=== PATIENT | male | born 1940 | race African-American/Black ===

== ENCOUNTER 2017-05-30 06:59 | Inpatient (IN) ==
[2017-05-30 07:35] LABS: Basophils % 0.2 % (0.0-0.8); Hemoglobin 8.5 GM/DL (14.0-18.0); Immature Granulocytes % 0.4 %; Immature Granulocytes Absolute 0.02 #; Lymphocytes # 0.7 10*3/uL (1.4-4.0); Lymphocytes % 13.5 % (21.2-54.2); Mean Corpuscular HGB Conc 28.3 GM/DL (32-36); Mean Corpuscular Hemoglobin 29 PG (27-34); Mean Corpuscular Volume 103.8 FL (87-102); Mean Platelet Volume 11.4 FL (9.6-12.0); Monocytes # 0.4 10*3/uL (0.11-0.8); Monocytes % 7.4 % (1.7-12.7); Neutrophils % 78.5 % (38.7-73.9); Platelet Count 160 T/CUMM (130-400); Red Blood Count 2.89 MC/CUMM (3.8-5.5); Red Cell Distribution Width 15.5 % (9.3-17.3); White Blood Count 5.1 T/CUMM (4-12)
[2017-05-30 07:57] LABS: Apearance,Urine Slightly Hazy (Clear); Bacteria,Urine Many /HPF (Few); Bilirubin,Urine Negative (Negative); Blood, Urine Small mg/dL (Negative); Glucose,Urine (UA) Negative (Negative); Ketones,Urine Negative (Negative); Mucus,Urine Occasional /LPF (Occasional); Nitrite,Urine Positive (Negative); Protein,Urine Negative; RBC,Urine 1 /HPF (0-4); Squamous Epithelial Cell,Urine Occasional /HPF (0-10); Urine Color Yellow (Yellow); Urine Specific Gravity 1.012 (1.001-1.035); Urine Urobilinogen < 2.0 EU/DL (0.2-1.0); WBC,Urine 43 /HPF (0-6)
[2017-05-30 08:01] LABS: Albumin 2.9 G/DL (3.4-5.0); Bilirubin,Total 0.4 MG/DL (0.2-1.0); Calcium 9.7 MG/DL (8.5-10.1); Osmolality,Calculated 295.8 MOS/KG (273-304); Potassium 4.6 MMOL/L (3.5-5.1); Total Protein 6.3 G/DL (6.4-8.3)
[2017-05-30 08:10] LABS: Elliptocytes 1+; Hypochromasia 2+; Microcytosis 1+; Target Cells Slight
[2017-05-30] MEDS ORDERED: cefTRIAXone 1,000 MG in SODIUM CHLORIDE 0.9% 100 ML IV STA (08:50)
[2017-05-30] MEDS ORDERED: SODIUM CHLORIDE 0.9% 500 ML IV STA (08:50)
[2017-05-30] MEDS ORDERED: cefTRIAXone 1,000 MG VIAL ONE (08:54)
[2017-05-30] MEDS ORDERED: ONDANSETRON 4 MG/2 ML VIAL IV PRN (10:14)
[2017-05-30] MEDS ORDERED: ACETAMINOPHEN 325 MG TABLET PO PRN (10:14)
[2017-05-30] MEDS ORDERED: BUDESONIDE 0.5 MG/2 ML NEB RESP TX PRN (10:17)
[2017-05-30] MEDS: ALBUTEROL/IPRATROPIUM 3 ML NEB RESP TX SCH ×2 (13:00→19:17)
[2017-05-30] MEDS: SODIUM CHLORIDE 0.9% 1,000 ML IV SCH ×2 (14:28→22:31)
[2017-05-30] MEDS: DICLOFENAC POTASSIUM 50 MG TABLET PO SCH ×2 (15:48→21:01)
[2017-05-30] MEDS: VALSARTAN PO SCH (21:01)
[2017-05-30] MEDS: SACUBITRIL PO SCH (21:01)
[2017-05-30] MEDS: ATORVASTATIN 40 MG TABLET PO SCH (21:01)
[2017-05-31] MEDS: ALBUTEROL/IPRATROPIUM 3 ML NEB RESP TX SCH ×4 (00:44→20:08)
[2017-05-31] MEDS: SODIUM CHLORIDE 0.9% 1,000 ML IV SCH ×3 (06:36→22:53)
[2017-05-31] MEDS ORDERED: IPRATROPIUM 500 MCG/2.5 ML NEB RESP TX SCH (07:00)
[2017-05-31 07:05] LABS: Basophils % 0.2 % (0.0-0.8); Eosinophils % 0.2 % (0.00-10.9); Hematocrit 25.1 VOL% (42.0-52.0); Hemoglobin 7.2 GM/DL (14.0-18.0); Immature Granulocytes % 0.5 %; Immature Granulocytes Absolute 0.02 #; Lymphocytes # 0.6 10*3/uL (1.4-4.0); Lymphocytes % 13.9 % (21.2-54.2); Mean Corpuscular HGB Conc 28.7 GM/DL (32-36); Mean Corpuscular Hemoglobin 29 PG (27-34); Mean Platelet Volume 11.3 FL (9.6-12.0); Monocytes # 0.4 10*3/uL (0.11-0.8); Neutrophils # 3.1 10*3/uL (1.4-7.4); Neutrophils % 75.2 % (38.7-73.9); Platelet Count 140 T/CUMM (130-400); Red Blood Count 2.46 MC/CUMM (3.8-5.5); Red Cell Distribution Width 15.7 % (9.3-17.3); White Blood Count 4.1 T/CUMM (4-12)
[2017-05-31 07:28] LABS: Anisocytosis 1+; Basophilic Stippling Slight; Poikilocytosis 1+
[2017-05-31 07:39] LABS: Albumin 2.7 G/DL (3.4-5.0); Bilirubin,Total 0.6 MG/DL (0.2-1.0); Calcium 8.9 MG/DL (8.5-10.1); Osmolality,Calculated 293.4 MOS/KG (273-304); Potassium 4.1 MMOL/L (3.5-5.1); Total Protein 5.1 G/DL (6.4-8.3)
[2017-05-31 08:18] LABS: % Iron Saturation 29.6 % (18-50); Ferritin 84.8 ng/ml (26-388)
[2017-05-31 10:04] LABS: Folate 9.2 NG/ML (5.4-24.0)
[2017-05-31] MEDS: predniSONE 10 MG TABLET PO SCH (10:36)
[2017-05-31] MEDS: PANTOPRAZOLE 40 MG TABLET PO SCH (10:36)
[2017-05-31] MEDS: DIGOXIN 0.125 MG TABLET PO SCH (10:37)
[2017-05-31] MEDS: FUROSEMIDE 80 MG TABLET PO SCH (10:38)
[2017-05-31] MEDS: CARVEDILOL 3.125 MG TABLET PO SCH (10:38)
[2017-05-31] MEDS: DICLOFENAC POTASSIUM 50 MG TABLET PO SCH ×3 (10:45→20:46)
[2017-05-31] MEDS: VALSARTAN PO SCH ×2 (10:46→20:46)
[2017-05-31] MEDS: SACUBITRIL PO SCH ×2 (10:46→20:46)
[2017-05-31] MEDS: POTASSIUM CHLORIDE 20 MEQ TABLET PO SCH (10:47)
[2017-05-31] MEDS ORDERED: SKIN HEALING OINT (AQUAPHOR) 50 GM TUBE TOP PRN (14:59)
[2017-05-31] MEDS: ATORVASTATIN 40 MG TABLET PO SCH (20:46)
[2017-06-01] MEDS: ALBUTEROL/IPRATROPIUM 3 ML NEB RESP TX SCH ×4 (00:53→19:13)
[2017-06-01 06:48] LABS: Basophils % 0.2 % (0.0-0.8); Eosinophils % 0.7 % (0.00-10.9); Hematocrit 23.1 VOL% (42.0-52.0); Hemoglobin 6.8 GM/DL (14.0-18.0); Immature Granulocytes % 0.2 %; Immature Granulocytes Absolute 0.01 #; Lymphocytes # 0.9 10*3/uL (1.4-4.0); Lymphocytes % 20.5 % (21.2-54.2); Mean Corpuscular HGB Conc 29.4 GM/DL (32-36); Mean Corpuscular Hemoglobin 29 PG (27-34); Mean Corpuscular Volume 99.1 FL (87-102); Mean Platelet Volume 11.4 FL (9.6-12.0); Monocytes # 0.5 10*3/uL (0.11-0.8); Monocytes % 12.3 % (1.7-12.7); Neutrophils # 2.8 10*3/uL (1.4-7.4); Neutrophils % 66.1 % (38.7-73.9); Platelet Count 143 T/CUMM (130-400); Red Blood Count 2.33 MC/CUMM (3.8-5.5); Red Cell Distribution Width 15.7 % (9.3-17.3); White Blood Count 4.2 T/CUMM (4-12)
[2017-06-01] MEDS: SODIUM CHLORIDE 0.9% 1,000 ML IV SCH ×3 (07:04→20:06)
[2017-06-01 07:16] LABS: Calcium 7.9 MG/DL (8.5-10.1); Magnesium 1.9 MG/DL (1.8-2.4); Potassium 3.9 MMOL/L (3.5-5.1)
[2017-06-01] MEDS ORDERED: DOCUSATE SODIUM 100 MG CAPSULE PO PRN (07:41)
[2017-06-01] MEDS: DICLOFENAC POTASSIUM 50 MG TABLET PO SCH ×2 (09:57→15:16)
[2017-06-01] MEDS: CARVEDILOL 3.125 MG TABLET PO SCH (09:58)
[2017-06-01] MEDS: FERROUS SULFATE 325 MG TABLET PO SCH ×2 (09:58→20:04)
[2017-06-01] MEDS: DIGOXIN 0.125 MG TABLET PO SCH (09:59)
[2017-06-01] MEDS: POTASSIUM CHLORIDE 20 MEQ TABLET PO SCH (09:59)
[2017-06-01] MEDS: PANTOPRAZOLE 40 MG TABLET PO SCH (10:01)
[2017-06-01] MEDS: predniSONE 10 MG TABLET PO SCH (10:01)
[2017-06-01] MEDS: FUROSEMIDE 80 MG TABLET PO SCH (10:01)
[2017-06-01] MEDS: SACUBITRIL PO SCH ×2 (10:23→20:05)
[2017-06-01] MEDS: VALSARTAN PO SCH ×2 (10:23→20:05)
[2017-06-01] MEDS: FUROSEMIDE 20 MG/2 ML VIAL IV SCH (15:10)
[2017-06-01 16:43] LABS: Hematocrit 26.5 VOL% (42.0-52.0); Hemoglobin 7.9 GM/DL (14.0-18.0)
[2017-06-01] MEDS: ATORVASTATIN 40 MG TABLET PO SCH (20:04)
[2017-06-02] MEDS: ALBUTEROL/IPRATROPIUM 3 ML NEB RESP TX SCH ×3 (00:11→12:42)
[2017-06-02 07:21] LABS: Basophils % 0.2 % (0.0-0.8); Eosinophils % 0.7 % (0.00-10.9); Hematocrit 23.6 VOL% (42.0-52.0); Immature Granulocytes % 0.2 %; Immature Granulocytes Absolute 0.01 #; Lymphocytes # 0.8 10*3/uL (1.4-4.0); Lymphocytes % 14.4 % (21.2-54.2); Mean Corpuscular HGB Conc 29.7 GM/DL (32-36); Mean Corpuscular Hemoglobin 29 PG (27-34); Mean Corpuscular Volume 97.1 FL (87-102); Mean Platelet Volume 10.9 FL (9.6-12.0); Monocytes # 0.7 10*3/uL (0.11-0.8); Monocytes % 12.4 % (1.7-12.7); Neutrophils # 3.9 10*3/uL (1.4-7.4); Neutrophils % 72.1 % (38.7-73.9); Platelet Count 128 T/CUMM (130-400); Red Blood Count 2.43 MC/CUMM (3.8-5.5); Red Cell Distribution Width 15.2 % (9.3-17.3); White Blood Count 5.5 T/CUMM (4-12)
[2017-06-02 08:22] LABS: Alanine Aminotransferase 18 U/L (16-61); Albumin 2.3 G/DL (3.4-5.0); Alkaline Phosphatase 63 U/L (45-117); Aspartate Amino Transferase 18 U/L (0-37); Bilirubin,Total < 0.39 MG/DL (0.2-1.0); Blood Urea Nitrogen 11 MG/DL (7-18); Calcium 8.1 MG/DL (8.5-10.1); Glucose 92 MG/DL (74-106); Osmolality,Calculated 279.3 MOS/KG (273-304); Phosphorous 1.9 MG/DL (2.5-4.9); Sodium 141 MMOL/L (136-145); Total Protein 4.5 G/DL (6.4-8.3)
[2017-06-02] MEDS: FUROSEMIDE 20 MG/2 ML VIAL IV SCH (08:59)
[2017-06-02] MEDS ORDERED: POLYETHYLENE GLYCOL POWDER 17 GM PACK PO SCH (09:00)
[2017-06-02] MEDS ORDERED: PANTOPRAZOLE 40 MG TABLET PO SCH (09:00)
[2017-06-02] MEDS: POTASSIUM CHLORIDE 20 MEQ TABLET PO SCH (09:03)
[2017-06-02] MEDS: predniSONE 10 MG TABLET PO SCH (09:03)
[2017-06-02] MEDS: FERROUS SULFATE 325 MG TABLET PO SCH (09:04)
[2017-06-02] MEDS: DIGOXIN 0.125 MG TABLET PO SCH (09:04)
[2017-06-02] MEDS: CARVEDILOL 3.125 MG TABLET PO SCH (09:04)
[2017-06-02] MEDS: SACUBITRIL PO SCH (09:14)
[2017-06-02] MEDS: VALSARTAN PO SCH (09:14)
[2017-06-02 11:17] VITALS: BP 120/55
[2017-06-02] MEDS: SODIUM CHLORIDE 0.9% 1,000 ML IV SCH (11:21)
== END 2017-06-02 16:15 | disposition home health service (06) | DRG 689 ==
LOC: EDBD → EDUNIT# → N.ED 06:59 → N.EDINP 10:08 → SUATTDRO 10:08 → N.EDINP 11:12 → N.4E 11:29
PROVIDERS: ATTEND Internal Medicine

== ENCOUNTER 2017-06-29 13:49 | Inpatient (IN) ==
[2017-06-29] MEDS ORDERED: SODIUM CHLORIDE 0.9% 1,300 ML IV ONE (14:02)
[2017-06-29] MEDS ORDERED: MORPHINE 2 MG/1 ML SYRINGE IV STA (14:07)
[2017-06-29] MEDS ORDERED: ONDANSETRON 4 MG/2 ML VIAL IV STA (14:07)
[2017-06-29] MEDS ORDERED: ONDANSETRON 4 MG/2 ML VIAL ONE (14:08)
[2017-06-29] MEDS ORDERED: MORPHINE 2 MG/1 ML SYRINGE ONE (14:08)
[2017-06-29 15:23] LABS: Alanine Aminotransferase 16 U/L (16-61); Albumin 2.3 G/DL (3.4-5.0); Alkaline Phosphatase 48 U/L (45-117); Aspartate Amino Transferase 13 U/L (0-37); Bilirubin,Total < 0.39 MG/DL (0.2-1.0); Blood Urea Nitrogen 34 MG/DL (7-18); Calcium 7.8 MG/DL (8.5-10.1); Glucose 109 MG/DL (74-106); Osmolality,Calculated 289.3 MOS/KG (273-304); Potassium 4.9 MMOL/L (3.5-5.1); Sodium 141 MMOL/L (136-145); Total Protein 4.4 G/DL (6.4-8.3)
[2017-06-29 15:25] LABS: Immature Granulocytes % 0.7 %; Immature Granulocytes Absolute 0.05 #; Lymphocytes # 0.3 10*3/uL (1.4-4.0); Lymphocytes % 3.9 % (21.2-54.2); Mean Corpuscular HGB Conc 29.3 GM/DL (32-36); Mean Corpuscular Hemoglobin 29 PG (27-34); Mean Platelet Volume 10.9 FL (9.6-12.0); Monocytes # 0.3 10*3/uL (0.11-0.8); Monocytes % 4.9 % (1.7-12.7); NRBC # 0.05 10*3/uL; Neutrophils # 6.3 10*3/uL (1.4-7.4); Neutrophils % 90.5 % (38.7-73.9); Platelet Count 192 T/CUMM (130-400); Red Cell Distribution Width 16.2 % (9.3-17.3); White Blood Count 6.9 T/CUMM (4-12)
[2017-06-29 15:30] LABS: INR 1.1; PT Patient Result 11.4 SECS; Partial Thromboplastin Time 26.8 SECS (0-40)
[2017-06-29 15:47] LABS: Hemoglobin 4.1 GM/DL (14.0-18.0)
[2017-06-29 15:50] LABS: Lactic Acid 3.2 MMOL/L (0.4-2.0)
[2017-06-29] MEDS ORDERED: SODIUM CHLORIDE 0.9% 1,000 ML IV PRN (15:50)
[2017-06-29 16:52] LABS: Band Neutrophils 1 % (0-10); Lymphocytes 8 % (20-55); Platelet Estimate Normal; Segmented Neutrophils 90 % (50-85); Total Cells Counted 100
[2017-06-29] MEDS ORDERED: ACETAMINOPHEN 325 MG TABLET PO PRN (16:55)
[2017-06-29] MEDS ORDERED: ONDANSETRON 4 MG/2 ML VIAL IV PRN (16:55)
[2017-06-29] MEDS ORDERED: DOCUSATE SODIUM 100 MG CAPSULE PO PRN (16:55)
[2017-06-29] MEDS ORDERED: traMADol 50 MG TABLET PO PRN (17:03)
[2017-06-29] MEDS ORDERED: BUDESONIDE 0.5 MG/2 ML NEB RESP TX PRN (17:03)
[2017-06-29] MEDS: SODIUM CHLORIDE 0.9% 1,000 ML IV SCH (17:14)
[2017-06-29 17:25] LABS: Folate 13.4 NG/ML (5.4-24.0); Vitamin B12 359 PG/ML (211-911)
[2017-06-29] MEDS ORDERED: SODIUM CHLORIDE 0.9% 500 ML IV STA (17:44)
[2017-06-29] MEDS: ALBUTEROL/IPRATROPIUM 3 ML NEB RESP TX SCH ×2 (19:21→22:42)
[2017-06-29 19:37] LABS: Immature Granulocytes % 0.6 %; Immature Granulocytes Absolute 0.05 #; Lymphocytes # 0.4 10*3/uL (1.4-4.0); Lymphocytes % 4.1 % (21.2-54.2); Mean Corpuscular HGB Conc 27.7 GM/DL (32-36); Mean Corpuscular Hemoglobin 29 PG (27-34); Mean Corpuscular Volume 102.8 FL (87-102); Mean Platelet Volume 11.1 FL (9.6-12.0); Monocytes # 0.6 10*3/uL (0.11-0.8); Monocytes % 6.5 % (1.7-12.7); NRBC # 0.02 10*3/uL; Neutrophils # 7.9 10*3/uL (1.4-7.4); Neutrophils % 88.8 % (38.7-73.9); Platelet Count 203 T/CUMM (130-400); Red Blood Count 1.44 MC/CUMM (3.8-5.5); Red Cell Distribution Width 16.2 % (9.3-17.3); White Blood Count 8.9 T/CUMM (4-12)
[2017-06-29 19:41] LABS: Hematocrit 14.8 VOL% (42.0-52.0); Hemoglobin 4.1 GM/DL (14.0-18.0)
[2017-06-29 20:53] LABS: Sedimentation Rate-Westergren 20 MM/HR (0-20)
[2017-06-29 20:55] LABS: Lymphocytes 6 % (20-55); Nucleated Red Blood Cells 1 (0-5); Segmented Neutrophils 93 % (50-85); Total Cells Counted 100
[2017-06-29 20:56] LABS: Basophilic Stippling Slight; Hypochromasia 1+; Microcytosis 2+; Polychromasia 1+
[2017-06-29 20:57] LABS: Platelet Estimate Normal
[2017-06-29] MEDS: ATORVASTATIN 40 MG TABLET PO SCH (22:57)
[2017-06-29] MEDS: PANTOPRAZOLE 40 MG VIAL IV SCH (22:58)
[2017-06-30] MEDS: ALBUTEROL/IPRATROPIUM 3 ML NEB RESP TX SCH ×5 (02:39→18:55)
[2017-06-30] MEDS: SODIUM CHLORIDE 0.9% 1,000 ML IV SCH ×2 (06:27→16:53)
[2017-06-30 07:12] LABS: Hemoglobin A1 (Alkaline) 98.1 % (96.5-98.5); Hemoglobin A2 (Alkaline) 1.9 % (1.5-3.5)
[2017-06-30 08:39] LABS: Hematocrit 24.2 VOL% (42.0-52.0); Immature Granulocytes % 0.3 %; Immature Granulocytes Absolute 0.02 #; Lymphocytes # 0.2 10*3/uL (1.4-4.0); Lymphocytes % 2.4 % (21.2-54.2); Mean Corpuscular HGB Conc 30.2 GM/DL (32-36); Mean Corpuscular Hemoglobin 29 PG (27-34); Mean Platelet Volume 10.9 FL (9.6-12.0); Monocytes # 0.3 10*3/uL (0.11-0.8); Monocytes % 4.6 % (1.7-12.7); NRBC # 0.05 10*3/uL; Neutrophils # 6.9 10*3/uL (1.4-7.4); Neutrophils % 92.7 % (38.7-73.9); Platelet Count 205 T/CUMM (130-400); White Blood Count 7.4 T/CUMM (4-12)
[2017-06-30 08:43] LABS: Red Blood Count 2.52 MC/CUMM (3.8-5.5)
[2017-06-30 08:44] LABS: Hemoglobin 7.3 GM/DL (14.0-18.0)
[2017-06-30 08:59] LABS: Calcium 7.8 MG/DL (8.5-10.1); Osmolality,Calculated 291.8 MOS/KG (273-304); Potassium 5.3 MMOL/L (3.5-5.1)
[2017-06-30] MEDS ORDERED: predniSONE 10 MG TABLET PO SCH (09:00)
[2017-06-30 09:05] LABS: Band Neutrophils 4 % (0-10); Lymphocytes 4 % (20-55); Nucleated Red Blood Cells 1 (0-5); Segmented Neutrophils 88 % (50-85); Total Cells Counted 100
[2017-06-30 09:06] LABS: Basophilic Stippling Slight; Hypochromasia 1+; Microcytosis 1+; Platelet Estimate Normal; Polychromasia Slight
[2017-06-30 09:30] LABS: Hematocrit 23.8 VOL% (42.0-52.0)
[2017-06-30] MEDS ORDERED: FUROSEMIDE 40 MG/4 ML VIAL IV ONE (09:30)
[2017-06-30] MEDS: DIGOXIN 0.125 MG TABLET PO SCH (09:43)
[2017-06-30] MEDS: FINASTERIDE 5 MG TABLET PO SCH (09:43)
[2017-06-30] MEDS: BISACODYL 5 MG TABLET PO SCH ×2 (09:43→16:02)
[2017-06-30] MEDS: PANTOPRAZOLE 40 MG VIAL IV SCH ×2 (09:44→21:22)
[2017-06-30] MEDS: POTASSIUM CHLORIDE 20 MEQ TABLET PO SCH (09:44)
[2017-06-30] MEDS: MORPHINE 2 MG/1 ML SYRINGE IV PRN ×2 (09:57→16:02)
[2017-06-30 15:31] LABS: Apearance,Urine CLEAR (Clear); Bacteria,Urine Occasional /HPF (Few); Bilirubin,Urine Negative (Negative); Blood, Urine Negative (Negative); Glucose,Urine (UA) Negative (Negative); Hyaline Casts,Urine 1 /LPF (0-3); Ketones,Urine Negative (Negative); Mucus,Urine Occasional /LPF (Occasional); Nitrite,Urine Negative (Negative); Protein,Urine Negative; RBC,Urine 1 /HPF (0-4); Squamous Epithelial Cell,Urine Occasional /HPF (0-10); Urine Color Yellow (Yellow); Urine Specific Gravity 1.005 (1.001-1.035); Urine Urobilinogen < 2.0 EU/DL (0.2-1.0); WBC,Urine 1 /HPF (0-6)
[2017-06-30 15:52] LABS: Hematocrit 30.3 VOL% (42.0-52.0); Hemoglobin 9.2 GM/DL (14.0-18.0)
[2017-06-30] MEDS ORDERED: POLYETHYLENE GLYCOL POWDER 255 GM BOTTLE PO ONE (18:29)
[2017-06-30 19:58] LABS: Hematocrit 35.2 VOL% (42.0-52.0); Hemoglobin 10.6 GM/DL (14.0-18.0)
[2017-06-30] MEDS ORDERED: MAGNESIUM CITRATE 300 ML BOTTLE PO ONE (21:00)
[2017-06-30] MEDS: ATORVASTATIN 40 MG TABLET PO SCH (21:22)
[2017-07-01] MEDS: ALBUTEROL/IPRATROPIUM 3 ML NEB RESP TX SCH ×7 (00:03→23:40)
[2017-07-01] MEDS: BISACODYL 5 MG TABLET PO SCH (02:40)
[2017-07-01 06:00] LABS: Calcium 7.9 MG/DL (8.5-10.1); Magnesium 3.3 MG/DL (1.8-2.4); Osmolality,Calculated 293.1 MOS/KG (273-304); Potassium 5.5 MMOL/L (3.5-5.1)
[2017-07-01] MEDS ORDERED: ETOMIDATE 20 MG/10 ML VIAL IV ONE ×3 (06:14→07:55)
[2017-07-01] MEDS ORDERED: SUCCINYLCHOLINE 200 MG/10 ML VIAL ONE (06:14)
[2017-07-01] MEDS ORDERED: SUCCINYLCHOLINE 200 MG/10 ML VIAL IV ONE (06:15)
[2017-07-01] MEDS ORDERED: NOREPINEPHRINE 4 MG/4 ML VIAL IV ONE (06:21)
[2017-07-01] MEDS: NOREPINEPHRINE 8 MG in SODIUM CHLORIDE 0.9% 242 ML IV SCH ×3 (06:26→19:26)
[2017-07-01] MEDS ORDERED: FUROSEMIDE 40 MG/4 ML VIAL IV ONE (06:33)
[2017-07-01] MEDS ORDERED: ROCURONIUM 100 MG/10 ML VIAL IV ONE (08:30)
[2017-07-01 11:19] LABS: Hemoglobin 8.7 GM/DL (14.0-18.0)
[2017-07-01] MEDS: NICOTINE 21 MG/24 HR PATCH TRANSDERM PRN (12:04)
[2017-07-01] MEDS: methylPREDNISolone SOD SUC 40 MG/1 ML VIAL IV SCH ×2 (12:11→19:17)
[2017-07-01] MEDS: MIDAZOLAM 100 MG in SODIUM CHLORIDE 0.9% 80 ML IV SCH (12:14)
[2017-07-01] MEDS: FINASTERIDE 5 MG TABLET PO SCH (12:20)
[2017-07-01] MEDS: POTASSIUM CHLORIDE 20 MEQ TABLET PO SCH (12:20)
[2017-07-01] MEDS: DIGOXIN 0.125 MG TABLET PO SCH (12:20)
[2017-07-01] MEDS ORDERED: MINERAL OIL ENEMA 133 ML BOTTLE RECTAL ONE (12:58)
[2017-07-01] MEDS: PANTOPRAZOLE 40 MG VIAL IV SCH ×2 (13:04→21:11)
[2017-07-01 13:22] LABS: Hematocrit 27.9 VOL% (42.0-52.0); Hemoglobin 8.8 GM/DL (14.0-18.0); Immature Granulocytes % 0.2 %; Immature Granulocytes Absolute 0.01 #; Lymphocytes # 0.2 10*3/uL (1.4-4.0); Lymphocytes % 2.4 % (21.2-54.2); Mean Corpuscular HGB Conc 31.5 GM/DL (32-36); Mean Corpuscular Hemoglobin 29 PG (27-34); Mean Corpuscular Volume 92.4 FL (87-102); Mean Platelet Volume 10.6 FL (9.6-12.0); Monocytes # 0.3 10*3/uL (0.11-0.8); Monocytes % 4.5 % (1.7-12.7); NRBC # 0.17 10*3/uL; Neutrophils # 5.8 10*3/uL (1.4-7.4); Neutrophils % 92.9 % (38.7-73.9); Platelet Count 260 T/CUMM (130-400); Red Blood Count 3.02 MC/CUMM (3.8-5.5); Red Cell Distribution Width 16.3 % (9.3-17.3); White Blood Count 6.2 T/CUMM (4-12)
[2017-07-01] MEDS ORDERED: GLUCAGON 1 MG VIAL IM PRN (13:41)
[2017-07-01] MEDS ORDERED: DEXTROSE 50% 25 GM/50 ML VIAL IV PRN (13:41)
[2017-07-01 14:17] LABS: Band Neutrophils 3 % (0-10); Lymphocytes 4 % (20-55); Metamyelocytes 1 %; Nucleated Red Blood Cells 1 (0-5); Segmented Neutrophils 92 % (50-85); Total Cells Counted 100
[2017-07-01 14:18] LABS: Anisocytosis 1+; Hypochromasia 1+; Target Cells Few
[2017-07-01 14:19] LABS: Platelet Estimate Normal; Schistocytes Few
[2017-07-01] MEDS ORDERED: FUROSEMIDE 40 MG/4 ML VIAL IV SCH (15:00)
[2017-07-01] MEDS: MULTIVITAMIN IV SCH (18:57)
[2017-07-01] MEDS: MAGNESIUM SULF IV SCH (18:57)
[2017-07-01] MEDS: TRACE ELEMENTS IV SCH (18:57)
[2017-07-01] MEDS: [UNRECOGNIZED DRUG - OTHER] IV SCH (18:57)
[2017-07-01] MEDS: SUCRALFATE 1 GM/10 ML UDCUP NG SCH (19:04)
[2017-07-01] MEDS: INSULIN REGULAR 100 UNIT/ML SUBCUT SCH (19:06)
[2017-07-01] MEDS: FAT EMULSION 20% 250 ML IV SCH (19:10)
[2017-07-01 20:29] LABS: Hematocrit 28.3 VOL% (42.0-52.0)
[2017-07-01] MEDS: ATORVASTATIN 40 MG TABLET PO SCH (21:11)
[2017-07-01 22:01] LABS: Apearance,Urine CLOUDY (Clear); Bilirubin,Urine Negative (Negative); Blood, Urine Negative (Negative); Glucose,Urine (UA) Negative (Negative); Granular Casts,Urine 94 /LPF (0-1); Hyaline Casts,Urine 308 /LPF (0-3); Ketones,Urine Negative (Negative); Mucus,Urine Occasional /LPF (Occasional); Nitrite,Urine Negative (Negative); Protein,Urine 30 MG/DL; RBC,Urine 2 /HPF (0-4); Squamous Epithelial Cell,Urine Occasional /HPF (0-10); Urine Color Amber (Yellow); Urine Specific Gravity 1.013 (1.001-1.035); Urine Urobilinogen < 2.0 EU/DL (0.2-1.0); WBC,Urine 4 /HPF (0-6)
[2017-07-02] MEDS: methylPREDNISolone SOD SUC 40 MG/1 ML VIAL IV SCH ×3 (00:25→18:42)
[2017-07-02] MEDS: SUCRALFATE 1 GM/10 ML UDCUP NG SCH ×4 (00:25→18:48)
[2017-07-02] MEDS: NOREPINEPHRINE 8 MG in SODIUM CHLORIDE 0.9% 242 ML IV SCH ×3 (00:27→18:54)
[2017-07-02] MEDS: INSULIN REGULAR 100 UNIT/ML SUBCUT SCH ×4 (00:38→18:44)
[2017-07-02] MEDS: ALBUTEROL/IPRATROPIUM 3 ML NEB RESP TX SCH ×5 (03:42→19:46)
[2017-07-02 05:47] LABS: Hematocrit 25.5 VOL% (42.0-52.0); Hemoglobin 8.3 GM/DL (14.0-18.0); Immature Granulocytes % 0.3 %; Immature Granulocytes Absolute 0.02 #; Lymphocytes # 0.1 10*3/uL (1.4-4.0); Lymphocytes % 2.1 % (21.2-54.2); Mean Corpuscular HGB Conc 32.5 GM/DL (32-36); Mean Corpuscular Hemoglobin 29 PG (27-34); Mean Corpuscular Volume 89.2 FL (87-102); Mean Platelet Volume 10.8 FL (9.6-12.0); Monocytes # 0.3 10*3/uL (0.11-0.8); Monocytes % 4.3 % (1.7-12.7); NRBC # 0.06 10*3/uL; Neutrophils # 5.7 10*3/uL (1.4-7.4); Neutrophils % 93.3 % (38.7-73.9); Platelet Count 238 T/CUMM (130-400); Red Blood Count 2.86 MC/CUMM (3.8-5.5); Red Cell Distribution Width 15.8 % (9.3-17.3); White Blood Count 6.1 T/CUMM (4-12)
[2017-07-02 05:58] LABS: PT Patient Result 10.7 SECS; Partial Thromboplastin Time 27.8 SECS (0-40)
[2017-07-02 06:43] LABS: Calcium 8.2 MG/DL (8.5-10.1); Potassium 3.5 MMOL/L (3.5-5.1)
[2017-07-02 06:49] LABS: Calcium 8.2 MG/DL (8.5-10.1); Magnesium 2.9 MG/DL (1.8-2.4); Osmolality,Calculated 298.8 MOS/KG (273-304); Phosphorous 2.3 MG/DL (2.5-4.9); Potassium 3.4 MMOL/L (3.5-5.1); Prealbumin 4.4 MG/DL (20-40)
[2017-07-02 07:40] LABS: Band Neutrophils 2 % (0-10); Lymphocytes 4 % (20-55); Segmented Neutrophils 90 % (50-85); Total Cells Counted 100
[2017-07-02 07:41] LABS: Elliptocytes Few; Giant Platelets Few; Hypochromasia 1+; Microcytosis Slight; Platelet Estimate Adequate
[2017-07-02] MEDS: DIGOXIN 0.125 MG TABLET PO SCH (09:10)
[2017-07-02] MEDS: FINASTERIDE 5 MG TABLET PO SCH (09:11)
[2017-07-02] MEDS: PANTOPRAZOLE 40 MG VIAL IV SCH ×2 (09:15→22:06)
[2017-07-02] MEDS: NICOTINE 21 MG/24 HR PATCH TRANSDERM PRN (09:26)
[2017-07-02] MEDS ORDERED: SODIUM CHLORIDE 0.9% 1,000 ML IV PRN (10:59)
[2017-07-02] MEDS: [UNRECOGNIZED DRUG - OTHER] IV SCH (12:31)
[2017-07-02] MEDS: MAGNESIUM SULF IV SCH (12:31)
[2017-07-02] MEDS: MULTIVITAMIN IV SCH (12:31)
[2017-07-02] MEDS: TRACE ELEMENTS IV SCH (12:31)
[2017-07-02] MEDS: POTASSIUM CHLORIDE 20 MEQ TABLET PO SCH (12:33)
[2017-07-02] MEDS ORDERED: POTASSIUM CHLORIDE 20 MEQ/15 ML UDCUP PER TUBE PRN (12:34)
[2017-07-02] MEDS ORDERED: TRACE ELEMENTS (5) 1 ML, MULTIVITAMIN INJ 10 ML in AMINO ACIDS/DEXT/LYTES 4.25-5% 2,000 ML IV SCH (17:00)
[2017-07-02] MEDS: FAT EMULSION 20% 250 ML IV SCH (17:22)
[2017-07-02] MEDS: ATORVASTATIN 40 MG TABLET PO SCH (22:07)
[2017-07-03] MEDS: SUCRALFATE 1 GM/10 ML UDCUP NG SCH ×3 (00:35→13:12)
[2017-07-03] MEDS: INSULIN REGULAR 100 UNIT/ML SUBCUT SCH ×4 (00:35→18:34)
[2017-07-03] MEDS: methylPREDNISolone SOD SUC 40 MG/1 ML VIAL IV SCH ×2 (00:35→09:06)
[2017-07-03] MEDS: ALBUTEROL/IPRATROPIUM 3 ML NEB RESP TX SCH ×5 (00:38→15:12)
[2017-07-03] MEDS: MIDAZOLAM 100 MG in SODIUM CHLORIDE 0.9% 80 ML IV SCH ×2 (03:24→03:25)
[2017-07-03 03:41] LABS: ABG Base Excess 10.3 MMOL/L (-2.5-2.5); ABG HCO3 34.6 MMOL/L (20-26); ABG Oxygen Saturation 98.2 % (95-100); ABG PCO2 45.3 MM HG (35-48); ABG PH 7.501 (7.35-7.45); ABG PO2 125.9 MM HG (80-95)
[2017-07-03] MEDS: NOREPINEPHRINE 8 MG in SODIUM CHLORIDE 0.9% 242 ML IV SCH ×2 (03:46→15:53)
[2017-07-03 06:13] LABS: Basophils % 0.1 % (0.0-0.8); Hematocrit 27.9 VOL% (42.0-52.0); Hemoglobin 9.4 GM/DL (14.0-18.0); Immature Granulocytes % 0.4 %; Immature Granulocytes Absolute 0.03 #; Lymphocytes # 0.1 10*3/uL (1.4-4.0); Lymphocytes % 1.1 % (21.2-54.2); Mean Corpuscular HGB Conc 33.7 GM/DL (32-36); Mean Corpuscular Hemoglobin 30 PG (27-34); Mean Corpuscular Volume 87.5 FL (87-102); Mean Platelet Volume 10.9 FL (9.6-12.0); Monocytes # 0.1 10*3/uL (0.11-0.8); Monocytes % 1.4 % (1.7-12.7); NRBC # 0.05 10*3/uL; Red Blood Count 3.19 MC/CUMM (3.8-5.5); Red Cell Distribution Width 15.1 % (9.3-17.3); White Blood Count 7.2 T/CUMM (4-12)
[2017-07-03 06:15] LABS: Platelet Count 170 T/CUMM (130-400)
[2017-07-03 06:41] LABS: Calcium 8.1 MG/DL (8.5-10.1); Magnesium 2.6 MG/DL (1.8-2.4); Osmolality,Calculated 293.3 MOS/KG (273-304); Potassium 3.8 MMOL/L (3.5-5.1)
[2017-07-03 06:49] LABS: Band Neutrophils 5 % (0-10); Lymphocytes 2 % (20-55); Metamyelocytes 6 %; Myelocytes 2 %; Segmented Neutrophils 84 % (50-85); Total Cells Counted 100
[2017-07-03 06:51] LABS: Hypochromasia 2+; Platelet Estimate Normal
[2017-07-03] MEDS: PANTOPRAZOLE 40 MG VIAL IV SCH (09:10)
[2017-07-03] MEDS: DIGOXIN 0.125 MG TABLET PO SCH (09:13)
[2017-07-03] MEDS: FINASTERIDE 5 MG TABLET PO SCH (09:13)
[2017-07-03] MEDS ORDERED: SODIUM CHLORIDE 0.9% 1,000 ML IV ONE ×2 (13:05→14:30)
[2017-07-03] MEDS ORDERED: DIGOXIN 0.5 MG/2 ML AMP IV ONE ×3 (15:09→17:47)
[2017-07-03 18:08] LABS: Hemoglobin 5.7 GM/DL (14.0-18.0)
[2017-07-03 18:09] LABS: Hematocrit 17.4 VOL% (42.0-52.0)
[2017-07-03] MEDS ORDERED: FUROSEMIDE 40 MG/4 ML VIAL IV ONE (18:14)
[2017-07-03] MEDS ORDERED: SODIUM CHLORIDE 0.9% 1,000 ML IV PRN (18:14)
[2017-07-03] MEDS ORDERED: SODIUM BICARBONATE 50 MEQ/50 ML SYRINGE IV ONE (18:38)
[2017-07-03] MEDS ORDERED: EPINEPHrine 1 MG/10 ML SYRINGE ONE (18:38)
[2017-07-03 18:55] VITALS: BP 74/49
== END 2017-07-03 18:48 | disposition expired | DRG 377 ==
LOC: EDUNIT# → EDBD → N.ED 13:49 → SUATTDRO 16:55 → N.EDINP 16:55 → N.2E 18:23 → N.CC 07-01 06:06
PROVIDERS: ADMIT Internal Medicine; ATTEND Internal Medicine